=== PATIENT | female | born 1980 | race Caucasian/White ===

== ENCOUNTER 2020-08-04 08:51 | Emergency (ER) | payer OTHER ==
[~2020-08-04] VITALS: Ht 165.1 cm; Wt 82.0 kg
[2020-08-04] MEDS ORDERED: ACETAMINOPHEN 500 MG TABLET PO ONE (09:15)
[2020-08-04 10:14] VITALS: BP 150/79
== END 2020-08-04 10:27 | disposition home or self-care (01) ==
LOC: EMS 08:51
DX: Z11.1 Encounter for screening for respiratory tuberculosis (principal); M54.9 Dorsalgia, unspecified; G89.29 Other chronic pain
CPT/HCPCS: 71045; 99283